=== PATIENT | female | born 1995 | race Caucasian/White ===

== ENCOUNTER → 2023-09-18 | Emergency (ER) | payer MEDICAID ==
[~2023-09-18] VITALS: Ht 162.6 cm; Wt 66.0 kg
[~2023-09-18] MED LIST: ACET325T52 MT; NIRM1TAB8 PO
[2023-09-18 11:45] VITALS: O2SAT 98
[2023-09-18 12:17] VITALS: BP 100/60; PULSE 95; RESP 18; TEMP 99.3
== END ==
LOC: EDBD 11:39 → ER 11:39
DX: U07.1 COVID-19 (principal); J02.9 Acute pharyngitis, unspecified
CPT/HCPCS: 99283; 87426; Z7610 ×3